=== PATIENT | male | born 1960 | race Caucasian/White ===

== ENCOUNTER 2017-01-08 08:45 | Inpatient (IN) | payer BC, MEDICAID ==
[~2017-01-08] VITALS: Ht 162.6 cm; Wt 61.0 kg
[2017-01-08 09:45] LABS: PLATELET COUNT 369 x10^3mcL (130-400)
[2017-01-08 10:12] LABS: UA SPECIFIC GRAVITY 1.015 (1.005-1.035); microscopic required? YES; urine erythrocyte 2+ (NEGATIVE)
[2017-01-08 10:27] LABS: RED CELL DISTRIBUTION WIDTH 18.6 % (11.5-14.5)
[2017-01-08 10:43] LABS: ALKALINE PHOSPHATASE 94 U/L (46-116); ALT/SGPT 25 U/L (16-63); AST/SGOT 19 U/L (15-37); BILIRUBIN TOTAL 0.6 mg/dL (0.20-1.00); CALCIUM 8.5 mg/dL (8.5-10.1); CHLORIDE SERUM 85 mmol/L (98-107); CREATININE SERUM 1.8 mg/dL (0.7-1.3); GFR1 42 mL/min; HDL CHOLESTEROL 41 mg/dL (40-60); POTASSIUM SERUM 4.9 mmol/L (3.5-5.1); SODIUM SERUM 125 mmol/L (136-145); TOTAL PROTEIN, SERUM 7.6 g/dL (6.4-8.2)
[2017-01-08 10:45] LABS: BAND NEUTROPHIL 3 % (0-10); MONOCYTE 4 % (0-7); SEGMENTED NEUTROPHILS 90 % (37-75); rbc morphology (normal/abnorm) ABNORMAL (NORMAL)
[2017-01-08 10:47] LABS: ALBUMIN 2.8 g/dL (3.4-5.0); AMYLASE 335 U/L (25-115)
[2017-01-08 10:48] LABS: CHOLESTEROL 130 mg/dL (<200)
[2017-01-08 10:49] LABS: CARBON DIOXIDE 9.1 mmol/L (21-32)
[2017-01-08 10:50] LABS: GLUCOSE SERUM 748 mg/dL (74-106)
[2017-01-08] MEDS ORDERED: RELION HUMUL100 U/M2 IV (10:54)
[2017-01-08 11:08] LABS: AMPHETAMINE QUAL UR NONE DETECTED (NEG <=1000)
[2017-01-08 11:27] LABS: LIPASE 4007 IU/L (73-393)
[2017-01-08 12:07] VITALS: BP 108/76
[2017-01-08 12:40] VITALS: BP 123/83
[2017-01-08 13:48] LABS: MAGNESIUM 2.2 mg/dL (1.8-2.4); PHOSPHOROUS 6.1 mg/dL (2.5-4.9)
[2017-01-08 13:49] LABS: CHOLESTEROL/HDL RATIO 3.1
[2017-01-08 13:54] LABS: T3 TOTAL 0.29 ng/mL
[2017-01-08 13:59] LABS: FREE T4 1.01 ng/dL (0.76-1.46)
[2017-01-08 15:47] LABS: CALCIUM 7.5 mg/dL (8.5-10.1); CHLORIDE SERUM 103 mmol/L (98-107); CREATININE SERUM 1.1 mg/dL (0.7-1.3); GFR1 > 60 mL/min; GLUCOSE SERUM 327 mg/dL (74-106); POTASSIUM SERUM 3.5 mmol/L (3.5-5.1); SODIUM SERUM 138 mmol/L (136-145)
[2017-01-08 16:14] VITALS: BP 86/58
[2017-01-08 17:26] LABS: CALCIUM 6.9 mg/dL (8.5-10.1); CARBON DIOXIDE 24.2 mmol/L (21-32); CHLORIDE SERUM 108 mmol/L (98-107); CREATININE SERUM 1.1 mg/dL (0.7-1.3); GFR1 > 60 mL/min; GLUCOSE SERUM 143 mg/dL (74-106); POTASSIUM SERUM 3.4 mmol/L (3.5-5.1); SODIUM SERUM 141 mmol/L (136-145)
[2017-01-08 17:28] VITALS: BP 98/60
[2017-01-08 19:20] VITALS: BP 111/71
[2017-01-08 20:36] LABS: CALCIUM 6.9 mg/dL (8.5-10.1); CARBON DIOXIDE 26.1 mmol/L (21-32); CHLORIDE SERUM 109 mmol/L (98-107); GFR1 > 60 mL/min; GLUCOSE SERUM 152 mg/dL (74-106); MAGNESIUM 1.5 mg/dL (1.8-2.4); PHOSPHOROUS 1.5 mg/dL (2.5-4.9); POTASSIUM SERUM 3.2 mmol/L (3.5-5.1); SODIUM SERUM 141 mmol/L (136-145)
[2017-01-08 23:56] VITALS: BP 118/93
[2017-01-09 01:07] LABS: CALCIUM 7.2 mg/dL (8.5-10.1); CARBON DIOXIDE 25.1 mmol/L (21-32); CHLORIDE SERUM 108 mmol/L (98-107); CREATININE SERUM 0.9 mg/dL (0.7-1.3); GFR1 > 60 mL/min; GLUCOSE SERUM 204 mg/dL (74-106); MAGNESIUM 1.5 mg/dL (1.8-2.4); POTASSIUM SERUM 3.4 mmol/L (3.5-5.1); SODIUM SERUM 140 mmol/L (136-145)
[2017-01-09 01:23] LABS: PHOSPHOROUS 0.8 mg/dL (2.5-4.9)
[2017-01-09 03:30] VITALS: BP 95/55
[2017-01-09 06:02] LABS: CALCIUM 7.4 mg/dL (8.5-10.1); CARBON DIOXIDE 26.7 mmol/L (21-32); CHLORIDE SERUM 108 mmol/L (98-107); CREATININE SERUM 0.7 mg/dL (0.7-1.3); GFR1 > 60 mL/min; GLUCOSE SERUM 150 mg/dL (74-106); SODIUM SERUM 141 mmol/L (136-145)
[2017-01-09 06:15] LABS: PHOSPHOROUS 0.6 mg/dL (2.5-4.9)
[2017-01-09 06:19] LABS: PLATELET COUNT 289 x10^3mcL (130-400)
[2017-01-09 06:21] LABS: RED CELL DISTRIBUTION WIDTH 17.9 % (11.5-14.5)
[2017-01-09 08:00] VITALS: BP 116/81
[2017-01-09 09:10] LABS: BAND NEUTROPHIL 8 % (0-10); MONOCYTE 6 % (0-7); SEGMENTED NEUTROPHILS 75 % (37-75); rbc morphology (normal/abnorm) ABNORMAL (NORMAL)
[2017-01-09 09:36] VITALS: Ht 162.6 cm; Wt 61.0 kg
[2017-01-09 11:15] VITALS: BP 127/87
[2017-01-09 17:25] VITALS: BP 123/79
[2017-01-09 22:47] VITALS: BP 125/88
[2017-01-10 05:46] VITALS: BP 111/69
[2017-01-10 06:39] LABS: BASOPHIL % 0.1 % (0-2); PLATELET COUNT 236 x10^3mcL (130-400)
[2017-01-10 06:48] LABS: RED CELL DISTRIBUTION WIDTH 19.6 % (11.5-14.5)
[2017-01-10 06:49] LABS: rbc morphology (normal/abnorm) ABNORMAL (NORMAL)
[2017-01-10 06:54] LABS: CALCIUM 7.2 mg/dL (8.5-10.1); CARBON DIOXIDE 30.5 mmol/L (21-32); CHLORIDE SERUM 101 mmol/L (98-107); CREATININE SERUM 0.5 mg/dL (0.7-1.3); GFR1 > 60 mL/min; GLUCOSE SERUM 102 mg/dL (74-106); MAGNESIUM 1.4 mg/dL (1.8-2.4); SODIUM SERUM 134 mmol/L (136-145)
[2017-01-10 06:56] LABS: PHOSPHOROUS 0.8 mg/dL (2.5-4.9); POTASSIUM SERUM 2.8 mmol/L (3.5-5.1)
[2017-01-10 10:34] VITALS: BP 112/66
[2017-01-10 15:10] VITALS: BP 98/61
[2017-01-10 15:49] LABS: CALCIUM 7.5 mg/dL (8.5-10.1); CARBON DIOXIDE 32.2 mmol/L (21-32); CHLORIDE SERUM 98 mmol/L (98-107); CREATININE SERUM 0.8 mg/dL (0.7-1.3); GFR1 > 60 mL/min; GLUCOSE SERUM 207 mg/dL (74-106); MAGNESIUM 1.9 mg/dL (1.8-2.4); POTASSIUM SERUM 3.3 mmol/L (3.5-5.1); SODIUM SERUM 131 mmol/L (136-145)
[2017-01-10 17:01] VITALS: BP 120/81
[2017-01-10 21:46] VITALS: BP 104/77
[2017-01-11 06:30] LABS: CALCIUM 7.5 mg/dL (8.5-10.1); CARBON DIOXIDE 28.2 mmol/L (21-32); CHLORIDE SERUM 98 mmol/L (98-107); CREATININE SERUM 0.5 mg/dL (0.7-1.3); GFR1 > 60 mL/min; GLUCOSE SERUM 244 mg/dL (74-106); MAGNESIUM 1.7 mg/dL (1.8-2.4); PHOSPHOROUS 1.9 mg/dL (2.5-4.9); POTASSIUM SERUM 3.7 mmol/L (3.5-5.1); SODIUM SERUM 134 mmol/L (136-145)
[2017-01-11 06:58] VITALS: BP 118/90
[2017-01-11 08:44] VITALS: BP 113/83
[2017-01-11] MEDS ORDERED: LANTUS SOLOS100 U/M1 SQ (11:31)
[2017-01-11] MEDS ORDERED: ECO81 PO (11:33)
[2017-01-11] MEDS ORDERED: METFORMIN HCL850 MG PO (12:05)
[2017-01-11 13:49] LABS: CALCIUM 7.9 mg/dL (8.5-10.1); CARBON DIOXIDE 31.4 mmol/L (21-32); CHLORIDE SERUM 97 mmol/L (98-107); CREATININE SERUM 0.7 mg/dL (0.7-1.3); GFR1 > 60 mL/min; GLUCOSE SERUM 274 mg/dL (74-106); PHOSPHOROUS 3.2 mg/dL (2.5-4.9); POTASSIUM SERUM 3.7 mmol/L (3.5-5.1); SODIUM SERUM 132 mmol/L (136-145)
[2017-01-11] MEDS ORDERED: LIPI10 PO (13:57)
== END 2017-01-11 17:50 | disposition home or self-care (01) | DRG 637 ==
LOC: ED 08:45 → IC 10:28 → DU 10:28 → MU 10:28 → IC 11:50 → DU 01-09 11:15 → MU 01-11 06:51
PROVIDERS: Emergency Medicine; Family Medicine; ADMIT Family Medicine
DX: E13.10 Other specified diabetes mellitus with ketoacidosis without coma (principal); E43 Unspecified severe protein-calorie malnutrition; N17.0 Acute kidney failure with tubular necrosis; G93.41 Metabolic encephalopathy; K85.90 Acute pancreatitis without necrosis or infection, unspecified; E87.1 Hypo-osmolality and hyponatremia; R65.10 Systemic inflammatory response syndrome (SIRS) of non-infectious origin without acute organ dysfunction; E11.51 Type 2 diabetes mellitus with diabetic peripheral angiopathy without gangrene; D64.9 Anemia, unspecified; F17.210 Nicotine dependence, cigarettes, uncomplicated; Z68.22 Body mass index [BMI] 22.0-22.9, adult; Z79.4 Long term (current) use of insulin; Z91.14 Patient's other noncompliance with medication regimen; Z22.322 Carrier or suspected carrier of Methicillin resistant Staphylococcus aureus
CPT/HCPCS: 36556; 36600; 82962; 83880; 84439; 90732; G0480; J1170; J1642; J1815; J2060; J3475; J3480; J3490; J7030; J7040; J7050; Q0092